=== PATIENT | male | born 2000 | race American Indian/Alaskan Native ===

== ENCOUNTER 2021-07-10 03:25 | Emergency (ER) | payer OTHER ==
[2021-07-10 04:41] VITALS: BP 121/73
--- NOTE | 2021-07-10 05:24 | Emergency Department Report ---
ED General Adult HPI - General Chief complaint: Adult Asthma Stated complaint: SOB/FLU Time Seen by Provider: 07/10/21 05:15 Source: patient Mode of arrival: Ambulatory Limitations: No Limitations - History of Present Illness Initial comments: 21-year-old male patient with history of asthma presents to the emergency department with complaints of cough and shortness of breath for 2 days. Patient is out of his inhaler and his nebulizer machine is broken. Patient states his friend recently returned from vacation with a cough. Patient did not receive his COVID-19 vaccination series. Patient states his current symptoms are consistent with prior asthma flareups. No current steroid or antibiotic use. Denies fever, chills, hemoptysis, wheezing, chest pain. Denies all other complaints at this time. - Related Data Previous Rx's Medication Instructions Recorded Last Taken Type Albuterol Sulfate [Proair 90 mcg IH Q6H PRN #1 aer.pw.bas 07/10/21 Unknown Rx Digihaler] predniSONE [Deltasone] 20 mg PO QDAY 5 Days #7 tab 07/10/21 Unknown Rx ED Review of Systems ROS: Stated complaint: SOB/FLU Other details as noted in HPI Other: GENERAL: Negative for fever, chills, weight change, anorexia, fatigue. ENT: Negative for ear pain, difficulty hearing, sore throat, nasal congestion, epistaxis. CARDIOVASCULAR: Negative for chest pain, palpitations, lower extremity swelling. PULMONARY: Positive for cough and shortness of breath. GASTROINTESTINAL: Negative for abdominal pain, nausea, vomiting, diarrhea, constipation. MUSCULOSKELETAL: Negative for joint pain, joint swelling, myalgias, back pain, neck pain. NEUROLOGICAL: Negative for headache, seizure, syncope, paresthesias, weakness. INTEGUMENTARY: Negative for erythema, rash, diaphoresis, laceration, ecchymosis. HEMATOLOGICAL: Negative for hemoptysis, hematemesis, hematochezia, hematuria. PSYCHIATRIC: Negative for hallucinations, suicidal ideation, homicidal ideation, anxiety, depression. ED Past Medical Hx - Past Medical History Previous Medical History?: Yes Hx Asthma: Yes - Surgical History Past Surgical History?: No - Medications Home Medications: Home Medications Medication Instructions Recorded Confirmed Last Taken Type Albuterol Sulfate [Proair 90 mcg IH Q6H PRN #1 aer.pw.bas 07/10/21 Unknown Rx Digihaler] predniSONE [Deltasone] 20 mg PO QDAY 5 Days #7 tab 07/10/21 Unknown Rx ED Physical Exam - General Limitations: No Limitations - Other Other exam information: General: Awake and alert. No acute distress. Head: Atraumatic, normocephalic. Eyes: EOMI. Pupils are equal and round. Normal sclera and conjunctiva. ENT: Oral mucosa is moist. Normal pharyngeal exam. Neck: Supple. No lymphadenopathy. Pulmonary: Actively coughing on exam. Clear to auscultation bilaterally. Cardiac: Regular rate and rhythm. Pulses are palpable and equal bilaterally. No lower extremity cyanosis or edema. Skin: Warm and dry. No rashes. Abdomen: Soft, non-tender, non-protuberant. No guarding, rigidity, or rebound. Bowel sounds are normal. No organomegaly or masses noted. Back: Normal alignment. No CVA tenderness. Extremities: Symmetrical. Full range of motion intact. Neurological: Alert and oriented, appropriately interactive, no focal deficits. Psych: Cooperative. Appropriate mood and affect. Speech is evenly metered. Thoughts are logically construed. ED Course Vital Signs 07/10/21 04:18 Temperature 98.4 F Pulse Rate 91 H Respiratory 18 Rate Blood Pressure 121/73 O2 Sat by Pulse 97 Oximetry ED Medical Decision Making - Medical Decision Making Differential diagnosis including but not limited to: pneumonia, asthma exacerbation, viral illness, pertussis On reevaluation, patient remains stable. No hypoxia, no respiratory distress. Chest x-ray without acute process. History and exam findings consistent with asthma exacerbation. No clinical indication for further diagnostic work-up and/or emergent administration of rescue medications at this time. Patient will be discharged home with prescriptions for beta agonist inhaler and short course of steroids. Patient expressed understanding and is agreeable to plan of care. Strict return precautions provided. Repeat exam is unremarkable and benign. History, exam, diagnostic testing, and current condition do not suggest worrisome pathology to warrant further testing, continued ED treatment, admission, or surgical evaluation at this point. Given the low probability of a significant medical illness, it would be more likely to result in harm than benefit to perform further testing at this stage. Discussed findings, presumptive diagnosis, need for follow-up and specific signs/symptoms that should prompt immediate return to the emergency department. Instructions were explained in detail to the patient in addition to giving written discharge information. Patient expressed understanding and was given the opportunity to ask questions, all of which were satisfactorily answered prior to discharge home. Critical care attestation.: If time is entered above; I have spent that time in minutes in the direct care of this critically ill patient, excluding procedure time. ED Disposition Clinical Impression: Asthma exacerbation Qualifiers: Asthma severity: unspecified severity Asthma persistence: unspecified Qualified Code(s): J45.901 - Unspecified asthma with (acute) exacerbation Disposition: HOME / SELF CARE / HOMELESS Is pt being admited?: No Does the pt Need Aspirin: No Condition: Stable Instructions: Asthma, Adult, [id number] Additional Instructions: Use Albuterol inhaler as directed. Take Prednisone with food as directed. Avoid environmental triggers which may worsen your asthma. Follow-up with primary care provider this week. Call Monday to schedule an appointment. See referral information below. Return to the emergency department immediately for new or worsening symptoms. Prescriptions: predniSONE [Deltasone] 20 mg PO QDAY 5 Days #7 tab Albuterol Sulfate [Proair Digihaler] 90 mcg IH Q6H PRN #1 aer.pw.bas PRN Reason: Shortness Of Breath Referrals: CLIFF SALEH MD [Staff Physician] - 3-5 Days [facility] [Provider Group] - 3-5 Days [facility] [Outside] - 3-5 Days [facility] [Outside] - 3-5 Days [facility] [Outside] - 3-5 Days Time of Disposition: 05:57
--- NOTE | 2021-07-10 05:46 | XRay Report ---
CHEST 2 VIEWS INDICATION / CLINICAL INFORMATION: cough, SOB, +sick contact. COMPARISON: None available. FINDINGS: SUPPORT DEVICES: None. HEART / MEDIASTINUM: No significant abnormality. LUNGS / PLEURA: No significant pulmonary or pleural abnormality. No pneumothorax. ADDITIONAL FINDINGS: No significant additional findings. IMPRESSION: 1. No acute findings. Signer Name: Lukasz De La Cruz DO Signed: 07/10/2021 5:42 AM Workstation Name: [id number]
== END 2021-07-10 06:47 | disposition home or self-care (01) ==
LOC: ED 03:25
DX: J45.901 Unspecified asthma with (acute) exacerbation (principal); Z79.899 Other long term (current) drug therapy
CPT/HCPCS: 71046; 99283